=== PATIENT | female | born 1940 | race African-American/Black ===

== ENCOUNTER → 2017-01-06 | Outpatient (CLI) | payer OTHER ==
[~2017-01-06] MED LIST: ACETAMINOPHEN PR; ARIMIDEX1 MG; ARIMIDEX1 MG PO; ASPIRIN; ASPIRIN EC81 M1 PO; ASPIRIN81 M2 PO; ASPIRIN81 MG PO; AUGMENTIN PO; B-121000 MC1 PO; BAYER CHEWABLE81 MG PO; BP MED; BUMEX; CALCIUM STOOL240 M1 PO; CANASA1000 MG/SU; CARDIZEM CD180 M1 PO; CARDIZEM SR PO; CARTIA XT PO; CATAPRES-TTS-10.1 M1 TD; CLONIDINE1 EAC1 TD; COLACE PO; COUMADIN; COUMADIN PO; COUMADIN4 MG PO; CYANOCOBALAM1000 MCG PO; DOC-Q-LACE100 MG PO; DOCUSATE SODIU100 MG PO; DOXYCYCLINE150 MG PO; DSS100 MG PO; FERRO-TIME325 MG PO; FERROUS SULFATE; FLEXERIL10 MG PO; FOLIC ACID1 MG PO; HYDRALAZINE HCL25 MG PO; HYDROCODON-ACE1 EAC7 PO; K-DUR20 ME1 PO; KCL; KCL PO; KLOR-CON; KLOR-CON PO; LEVAQUIN PO; LEVAQUIN750 MG PO; LEVOFLOXACIN500 MG PO; LEVOTHYROXINE88 MCG PO; LEVSIN0.125 M2 PO; LEVSIN0.125 M2 SL; LISINOPRIL PO; LOVENOX40 MG/0.4 INJ; MACRODANTIN50 MG PO; MORGIDOX100 MG PO; MULTI VITAMIN1 EACH PO; MULTI-VITAMIN1 EAC1 PO; NEURONTIN PO; NEURONTIN100 MG PO; NEXIUM; NITROFURANTOIN50 M1 PO; NON-ASPIRIN325 MG PO; NORVASC PO; NORVASC10 MG PO; PANTOPRAZOLE SO40 MG PO; PHENERGAN25 MG PO; SENNA; SERTRALINE HCL25 M1 PO; SERTRALINE HCL25 M2 PO; STOOL SOFTENER100 M1 PO; SYNTHROID; SYNTHROID112 MCG PO; SYNTHROID88 MCG PO; TIROSINT75 MCG PO; TRIMPEX100 MG PO; VITAMIN B12-FO1 EACH PO; VITAMIN D1000 UNI1 PO; VITAMIN D1000 UNI2 PO; VITAMIN D1000 UNIT PO; VITAMIN D10000 UNIT PO; VITAMIN D3 COM1 EACH PO; VITAMIN D35000 UNI1 PO; VITAMIN D35000 UNIT PO; VITAMIN D400 UNI2; XARELTO20 MG PO; ZITHROMAX1 G/PKT PO; ZOFRAN
== END | disposition home or self-care (01) ==
LOC: CSSDAY 15:07
DX: D64.9 Anemia, unspecified (principal)
CPT/HCPCS: 86850; 86900; 86901; 86923

== ENCOUNTER → 2017-01-07 | Outpatient (CLI) | payer OTHER | END | disposition home or self-care (01) | LOC: CSSDAY 06:19 | DX: D64.9 Anemia, unspecified (principal) | CPT/HCPCS: 36430; J1200; J1642; J1940; P9016 ==

== ENCOUNTER 2017-02-28 15:05 | Inpatient (IN) | payer OTHER ==
--- NOTE | ~2017-02-28 | HP ---
Unit #: [id number] #: [id number] Patient: JAKI SPRINGER [id number] [address] [place], [place] [address] [id number] I MR#: [id number] NAME: JAKI SPRINGER ROOM: 03012 Age: 76 Sex: F Admission Date: 02/28/2017 : 1940 Attending Physician: Soo Cruz M.D. Primary Care Physician: Evelyn Henderson M.D. HISTORY AND PHYSICAL CHIEF COMPLAINT Complicated urinary tract infection with acute on chronic kidney injury and early sepsis. HISTORY OF PRESENT ILLNESS This pleasant 76-year-old female with a urostomy following treatment for endometrial CA, history of PE and DVTs, hypothyroidism, hypertension, and previous CVA, is admitted for early sepsis. The patient was in her usual state of health until two days prior to admission when she developed rigors with chills, increasing weakness, and today nausea and vomiting. She notes that her urine has appeared more cloudy. Her temperature this morning was as high as 103.1 degrees. She presented to this emergency department this afternoon where she was bolused with two liters of saline and given one gram of Rocephin after her urine was found to have significant pyuria. She currently is feeling somewhat improved, although her current blood pressure is 94/57. Previous cultures in the past were gram-negative organisms sensitive to Rocephin. PAST MEDICAL HISTORY 1. Recurrent endometrial CA, status post IVETTE in 2000. The patient was found to have metastatic disease and underwent extensive abdominal surgery on July 01, 2015, at [facility]. She has a urostomy in place. Status post XRT and chemotherapy. 2. History of pleural effusions. 3. Pulmonary embolism and DVT in 2005. The patient was anticoagulated until her GI bleeding. Now is status post IVC filter placement. 4. Gastroesophageal reflux disease. 5. Hypothyroidism. 6. Depression. 7. Hypertension. 8. Peripheral neuropathy secondary to chemotherapy. 9. Multiple CVAs. Last CVA in May 2016 was cardioembolic in nature and resulted in right-sided weakness and expressive aphasia. 10. Thyroid cancer, status post thyroidectomy. 11. History of possible rectal cancer, status post chemotherapy and radiation, complicated by radiation proctitis. 12. Total abdominal hysterectomy. 13. Urostomy. 14. Extensive abdominal surgery for metastatic endometrial CA. 15. Inferior vena cava filter placement. 16. Ureteral stent. 17. Thyroidectomy. Unit #: [id number] #: [id number] Patient: JAKI SPRINGER ALLERGIES Penicillin and sulfa. HOME MEDICATIONS 1. Neurontin 100 mg t.i.d. 2. Colace 100 mg b.i.d. 3. Clonidine 1 patch weekly. 4. Hydralazine 25 mg t.i.d. 5. Multivitamin daily. 6. Synthroid 0.088 mg daily. 7. Vitamin D3 at 5000 units daily. 8. Vitamin B12 at 1000 mg daily. 9. Aspirin 81 mg daily. FAMILY HISTORY Hypertension and diabetes mellitus. SOCIAL HISTORY The patient lives with her . She is a lifelong nonsmoker and does not drink alcohol. REVIEW OF SYSTEMS Somewhat difficult to obtain due to expressive aphasia. PHYSICAL EXAMINATION GENERAL: A very pleasant 76-year-old female currently in no acute distress. VITAL SIGNS: Temperature 103.1, pulse 126, respirations 20, blood pressure 141/50, and O2 saturation is 96% on room air. HEENT: Eyes PERRLA. Extraocular muscles are intact. Pharynx is benign. NECK: Supple without adenopathy or thyromegaly. CHEST: Clear. BACK: Without CVA tenderness. CARDIAC: Normal S1 and S2 with a soft systolic murmur. There is a port in the right upper chest. ABDOMEN: Bowel sounds are present. No hepatosplenomegaly, tenderness, or masses. There is a urostomy in the mid abdomen. EXTREMITIES: Without edema. Pedal pulses are present. NEUROLOGIC: Patient is awake and alert. She is oriented. Cranial nerves are intact except for a mild right lower facial droop. She has expressive aphasia. She does have very good strength however bilaterally. DIAGNOSTIC STUDIES ADMISSION LABORATORY: Hematocrit is 30 which is improved and white blood count is 2.1 with normal platelet count and 12 bands noted. SMA-12: BUN 27, creatinine 2, up from a creatinine of 1.4 in September, potassium 3.4, CO2 of 17, AST 152, ALT 45, and alkaline phosphatase 146. Normal lactic acid level. Urinalysis with positive leukocyte esterase and protein with 10-25 red cells and enumerable white cells. IMAGING: Chest x-ray I am told shows no acute disease, and I will review the x-ray. CARDIOLOGY: EKG sinus tachycardia, rate 115. ASSESSMENT 1. Complicated urinary tract infection in this patient with urostomy and early sepsis. Unit #: [id number] #: [id number] Patient: JAKI SPRINGER 2. History of hypertension with decreasing blood pressure. 3. Cerebrovascular accident with expressive aphasia. 4. Acute on chronic kidney disease. 5. History of rectal cancer, status post treatment. 6. Prior deep venous thrombosis and pulmonary embolism, status post inferior vena cava filter placement. 7. Endometrial cancer with metastatic disease requiring chemotherapy, radiation, and extensive surgery. 8. Hypothyroidism, status post thyroidectomy. 9. Chronic anemia. PLANS 1. IV fluids. 2. Cefepime and give one dose of vancomycin as the patient has a Mediport in place. 3. Hold antihypertensive medications. 4. Florastor. 5. Recheck labs in the morning. 6. Further workup and consultants depending on above. 1. Dictated by Kunal Cifuentes/leonel TD: 02/28/2017 21:25 JOB #: [id number] HISTORY AND PHYSICAL Page 1 of 1 X Soo Cruz MD X HISTORY AND PHYSICAL
--- NOTE | ~2017-02-28 | EKG ---
PATIENT: JAKI SPRINGER UNIT #: [id number] Ventricular Rate: 79 BPM Atrial Rate: 79 BPM P-R Interval: 154 ms QRS Duration: 92 ms Q-T Interval: 410 ms QTC Calculation(Bezet): 470 ms P Morrill: 65 degrees Calculated R Morrill: 61 degrees Calculated T Morrill: 38 degrees Diagnosis Line: Sinus rhythm with Premature atrial complexes Diagnosis Line: Otherwise normal ECG Diagnosis Line: When compared with ECG of 28-FEB-2017 15:38, Diagnosis Line: Premature atrial complexes are now Present Diagnosis Line: Non-specific change in ST segment in Anterior Diagnosis Line: leads Diagnosis Line: Confirmed by VANI JONES MD ([id number]) on 03/04/2017 Diagnosis Line: 10:28:09 AM INTERPRETING MD: ROBERT SANCHEZ
--- NOTE | ~2017-02-28 | CO ---
Unit #: [id number] #: [id number] Patient: JAKI SPRINGER [id number] [address] [place], [place] [address] [id number] I MR#: [id number] NAME: JAKI SPRINGER ROOM: 569 Age: 76 Sex: F Admission Date: 02/28/2017 : 1940 Attending Physician: Soo Cruz M.D. Primary Care Physician: Evelyn Henderson M.D. Consultation Date: 03/02/2017 CONSULTATION REPORT CHIEF COMPLAINT Abdominal pain. HISTORY OF PRESENT ILLNESS Ms. Springer is a 76-year-old woman, who we seen in the past with history of ileal conduit due to endometrial cancer. The patient has had repeated admissions for UTI. She normally see Dr. Yun urologist in [facility] in consult, because her recent CT scan showed worsening left hydronephrosis. She is here in the hospital, his is at the bedside. She has had intermittent episodes of abdominal pain. She has had a stroke since the last time I saw her. PAST MEDICAL HISTORY Endometrial cancer, hysterectomy, ileal conduit. She has had exploratory laparotomy before. She had radiation chemotherapy, pleural effusion, pulmonary embolus, GERD, IVC filter placement, hypothyroidism, depression, hypertension, peripheral neuropathy, thyroid cancer, rectal cancer. She has had previous ureteral stents, and a thyroidectomy. ALLERGIES Penicillin and sulfa. MEDICATIONS At home; Colace, Neurontin, clonidine, hydralazine, Synthroid, vitamin D3, vitamin B12, aspirin. FAMILY HISTORY Negative for any urologic problems. SOCIAL HISTORY She denies smoking or drinking. REVIEW OF SYSTEMS Negative for 10 points except for episodes of abdominal discomfort. PHYSICAL EXAMINATION VITAL SIGNS: She is afebrile. Vital signs are stable. GENERAL: Pleasant. HEENT: Pupils are equal and reactive to light. NECK: Supple. CHEST: Benign. PULMONARY: Benign. CARDIAC: Benign. ABDOMEN: Soft. No rebound or guarding. She has ileal conduit. 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 Urine is clear. Stoma is patent. EXTREMITIES: No edema. DIAGNOSTIC STUDIES LABORATORY RESULTS: Creatinine 2.1, which seems to be baseline for her. Recent white count 16.7. Most recent urine culture showing gram-negative rods. ASSESSMENT Hydronephrosis on the left; history of urinary tract infections in the past. The patient with worse hydronephrosis compared to previous CT scan. Discussed at length with the patient and her . They refused percutaneous nephrostomy tube placement. They refused attempted placement of the stent. He states she has an appointment with Dr. Yun and with another "kidney specialist" for hydronephrosis. I informed him that the hydronephrosis is worse since the last CT scan that was performed here. They still do not want any intervention. She does not want another stent placed she has had previous stent placement apparently, but they do not want her to go to a more procedures. At this time, we can offer our services if and when needed. She can be discharged home and she can definitely return to see the urologist as they have planned to do. Thank you for the consult. Dictated by... Eriberto Marie M.D. FIFI/karissa TD: 03/03/2017 02:05 JOB #: [id number] CONSULTATION REPORT Page 1 of 1 X Eriberto Marie MD X CONSULTATION REPORT
--- NOTE | ~2017-02-28 | CR72 ---
[facility] A Service of [facility] RADIOLOGY TEXT RESULTS PATIENT: JAKI SPRINGER LOCATION: [facility] 569-01 : [birth year] UNIT #: [id number] AGE: [address]: Soo Cruz MD SEX: F ORDER DR: [id number] [facility] [address] [facility]. [place], [place] [address] [id number] I MR#: [id number] Acc #: [id number] NAME: JAKI SPRINGER : 1940 SEX: F STUDY DATE/TIME: 02/28/2017 15:35 UNIT: [facility] ROOM: [facility] STUDY DESCRIPTION: CR Chest Single View Portable Attending Physician: Soo Cruz M.D. Ordering Physician: Kirt Ortiz M.D. Primary Care Physician: Evelyn Henderson M.D. MEDICAL IMAGING REPORT This report is preliminary unless electronic signature is present EXAM Portable chest INDICATION Shortness of breath worse the past 2 days. COMPARISON 10/09/2016. FINDINGS Stable volume loss in the right base with right pleural fluid or thickening. No acute infiltrate. Heart size stable. Stable chest port. IMPRESSION No acute finding. Dictated by... Romero Malin M.D. THIS IS AN ELECTRONICALLY VERIFIED REPORT Romero Malin M.D. at 03/01/2017 2:24 PM ARASH/carolina TD: 03/01/2017 06:43 JOB #: [id number] MEDICAL IMAGING REPORT Page 1 of 1 COPY
--- NOTE | ~2017-02-28 | DS ---
Unit #: [id number] #: [id number] Patient: JAKI SPRINGER [id number] [address] [address] [id number] I MR#: [id number] NAME: JAKI SPRINGER ROOM: 569 Age: 76 Sex: F Admission Date: 02/28/2017 : 1940 Discharge Date: Attending Physician: Soo Cruz M.D. Primary Care Physician: Evelyn Henderson M.D. DISCHARGE SUMMARY TRANSFER SUMMARY DATE OF TRANSFER 03/03/17 ADMISSION DIAGNOSES 1. Complicated urinary tract infection in patient with urostomy and early sepsis. 2. History of hypertension with decreasing blood pressure. 3. History of cerebrovascular accident with expressive aphasia. 4. Acute on chronic kidney disease. 5. History of rectal cancer status post treatment. 6. Prior deep venous thrombosis and pulmonary embolism status post inferior vena cava filter placement. 7. Endometrial cancer with metastatic disease requiring chemotherapy, radiation therapy and extensive surgery. 8. Hypothyroidism status post thyroidectomy. 9. Chronic anemia. DISCHARGE DIAGNOSES 1. Sepsis. 2. Gram-negative jacki bacteremia. 3. Acute on chronic kidney disease, 3. 4. Severe left hydronephrosis. 5. Parastomal herniation with stool impaction. 6. Acute thrombocytopenia without bleeding. 7. Hypertension. 8. Chronic anemia. 9. Hypothyroidism. 10. Elevated liver enzymes. 11. Hypokalemia. 12. Hypomagnesemia. 13. History of deep venous thrombosis and pulmonary embolism with inferior vena cava filter. CONSULTANTS 1. Alphonso Stark M.D., Nephrology. 2. Eriberto Marie M.D. Genitourinary Service. PROCEDURES None. DIAGNOSTIC STUDIES LABORATORY: WBC 16.7, hemoglobin 8.0, hematocrit 24.6, platelet count Unit #: [id number] #: [id number] Patient: JAKI SPRINGER 126,00. Sodium 137, potassium 3.2, chloride 110, CO2 17, glucose 60, BUN 31, creatinine 2.1, calcium 7.2, AST 104, ALT 68, alkaline phosphatase 122, bilirubin total 0.5, total protein 4.6, albumin 1.9, magnesium 1.7. PT 12.3, INR 1.2. Urine culture, preliminary, GNR greater than 100,000 CFU/mL. Blood culture x2 (preliminary) GNR. TSH 0.44, free T4 1.04. Lactic acid 0.8, 1.0. Occult blood IFOB positive. Troponin less than 0.05. IMAGING: CT of the abdomen without contrast, 03/01/17. Impression: Bilateral ureteral diversion to a right mid abdominal ileal conduit. Very severe left-sided hydronephrosis which has increased significantly since 09/23/2016. There is only minimal right-sided pyelocaliectasis. Large parastomal hernia of transverse colon which appears impacted with stool in the adjacent abdominal wall. This has increased in overall caliber since 09/23/2016. While there is no bowel dilatation within the abdomen to suggest bowel obstruction, this large hernia may contribute to poor urinary drainage of the patient's ileal conduit. Consider percutaneous or retrograde drainage of the markedly hydronephrotic left kidney, if clinically indicated. Decompression of the parastomal hernia would also likely be helpful. Cholecystectomy. Tiny bilateral pleural effusions and bibasilar pulmonary atelectasis. Portable chest, 02/28/17. Impression: No acute finding. CARDIOVASCULAR: 12-lead EKG on admission: Sinus tachycardia, otherwise, normal ECG. Repeat 12-lead EKG pending at this time. ALLERGIES Penicillin and sulfa. TRANSFER MEDICATIONS 1. Sodium bicarbonate 1,300 mg p.o. b.i.d. 2. Tylenol 650 mg p.o. q.4 hours p.r.n. pain. 3. Neurontin 100 mg p.o. t.i.d. 4. Colace 100 mg p.o. b.i.d. 5. Laxative of choice p.r.n. constipation. 6. MiraLax 17 g p.o. daily. 7. Florastor 250 mg p.o. b.i.d. 8. Therapeutic formula with minerals one tab p.o. daily. 9. Aspirin EC 81 mg p.o. daily. 10. Sodium chloride 0.9% 10 mL syringe flush IV catheter maintenance. 11. Synthroid 0.075 mg p.o. daily in the morning. 12. Vitamin D 5,000 units p.o. daily. 13. Vitamin B12 1,000 mcg p.o. daily. 14. Cefepime one gram IV q.24 hours. 15. One half normal saline with 75 mEq of sodium bicarbonate IV q.8 hours. 16. Please note the patient is to receive mag sulfate 2 g IV times one dose prior to transfer to [facility]. 17. The patient is to receive KCl per potassium protocol for potassium of 3.2 IV prior to transfer to [facility]. HOSPITAL COURSE The patient is a 76-year-old -Iranian female who presented to [facility] on the date of admission with complaint of rigors with chills, increasing weakness, nausea and vomiting. The patient's temperature was noted to be as high as 103.1 degrees earlier in Unit #: [id number] #: [id number] Patient: JAKI SPRINGER the day and was treated in the emergency department with two liters of saline and one gram of Rocephin after urine was found to have significant pyuria. The patient was somewhat improved, although blood pressure at the time of admission was 94/57. She was admitted to the hospital for further evaluation and management of her condition. Please refer to history and physical report for complete details. Results of blood cultures collected in the emergency department returned positive for GNR. Final blood cultures and sensitivities are pending at this time. Sepsis protocol was initiated as the patient was noted to also have an acute kidney on chronic kidney disease which was considered to be potentially related to sepsis. Dr. Alphonso Stark was consulted for further renal evaluation and management. CT of the abdomen was performed and revealed very severe left hydronephrosis as well as a left parastomal hernia which, per CT report, is believed to be contributing to the patient's hydronephrosis. Dr. Marie was consulted from Service who evaluated the patient and spoke with the patient's . The patient wishes to be transferred to [facility] under the care of Dr. Jose Maria Yun with whom I have spoken today and who has agreed to accept her to his care there at [facility]. The patient is also noted to have acute on chronic anemia with hemoglobin stable at 8.0 this morning. The patient's platelet count was also noted to be decreased this morning. The patient is having no obvious bleeding, although one stool for occult blood returned positive. The patient's blood pressure medications were discontinued on admission as her blood pressure was running somewhat low. Her blood pressure has been stable off of these medications. She has also been noted to have tomography technologist hypoglycemia after being kept n.p.o. on two separate occasions. I have spoken with Dr. Yun this morning and the patient will be allowed to eat as plan for any type of drainage of the left kidney will take place tomorrow. The patient is also noted to have moderately elevated liver enzymes which appear to be decreasing slowly this morning. She exhibited mild hypokalemia and hypomagnesemia, both of which will be repleted as dictated above. She has a history of DVT with PE and is status post placement of IVC filter. She has been on SCDs for DVT prophylaxis since admission. The patient has been noted to have a mild irregularity of heart rate on clinical examination and on telemetry strip this morning. A 12-lead EKG is pending at this time. The patient is completely asymptomatic. I have discussed the patient's condition with Dr. Sanchez. The transfer center has been notified. Again, I have spoken with Dr. Yun, who has agreed to accept the patient upon bed availability and bed assignment at [facility]. At this time, the plan is for transfer to [facility] later this afternoon. This has been discussed with the patient and her who are in agreement with the plan. Dictated by... Ruby Franco A.P.R.N. for Kunal Mcmillan/donn TD: 03/02/2017 11:43 JOB #: [id number] Unit #: [id number] #: [id number] Patient: JAKI SPRINGER DISCHARGE SUMMARY Page 1 of 1 X Ruby Franco APRN X DISCHARGE SUMMARY
--- NOTE | ~2017-02-28 | CO ---
Unit #: [id number] #: [id number] Patient: BEENA SPRINGER [id number] [address] [address] [id number] I MR#: [id number] NAME: BEENA SPRINGER ROOM: 569 Age: 76 Sex: F Admission Date: 02/28/2017 : 1940 Attending Physician: Soo Cruz M.D. Primary Care Physician: Evelyn Henderson M.D. Consultation Date: 03/01/2017 CONSULTATION REPORT REASON FOR CONSULTATION Renal insufficiency. Thank you very much for asking me to see this patient in consultation. HISTORY OF PRESENT ILLNESS Ms. Beena Springer is a 76-year-old female, who presented to the hospital yesterday with fevers, chills, weakness, nausea, vomiting, cloudy urine. She has an ileal conduit after obstruction from uterine CA, cystectomy and temperature is over 103 at home. Upon presentation, she had temperature of 101.3. She was noted to have a creatinine of 2.0. Upon presentation, it is up to 2.1 today. Because of this, I was asked to see the patient. The patient has noted over the last year to have creatinine ranging anywhere from 1.2 to 2.0. In September of this year, it was 1.4. The patient has aphasia from multiple CVAs in the past. Although, she is able to understand and answer questions. Her is at bedside. She denies any severe headaches, dizziness, cough. No neck pain. No chest pain or chest heaviness. No severe shortness of breath. No significant swelling. The rest of her review of systems as mentioned in the HPI. MEDICATIONS Currently include Neurontin 100 mg a day, Maxipime, Synthroid, Zofran, normal saline, Florastor, and aspirin. ALLERGIES Include Keflex, penicillin, and sulfa. FAMILY HISTORY Positive for hypertension and diabetes. SOCIAL HISTORY She is . No smoking. No alcohol. PAST MEDICAL HISTORY History of recurrent/metastatic endometrial CA; history of PE and DVTs in the past; history of hypothyroidism, status post thyroidectomy secondary to thyroid cancer in the past; history of hypertension; again history of CVAs with aphasia; history of gastroesophageal reflux disease, again status post cystectomy with ileal conduit; history of GI bleed in the past. REVIEW OF SYSTEMS As mentioned in the HPI, otherwise negative. Unit #: [id number] #: [id number] Patient: BEENA SPRINGER PHYSICAL EXAMINATION VITAL SIGNS: T-max 101.3, down to 98.3; pulse 91 to 104; blood pressure 94 to 130 over 40s to 60s. She had 1130 in and out 100+. HEENT: Normocephalic and atraumatic. Pupils are equal, round, and reactive to light. Extraocular muscles are intact. Hearing appears to be normal. Mouth is clear. No erythema. No exudate. NECK: Supple. No adenopathy. CARDIAC: She has regular rate without a rub. No S3 or S4. LUNGS: Clear bilaterally. No wheezes, rhonchi, or rales. ABDOMEN: Bowel sounds positive. Some mild diffuse tenderness. No rebound or guarding. She has an ostomy from the ileal conduit noted. EXTREMITIES: She has no significant lower extremity swelling. Her pulses are intact in upper and lower extremities. JOINTS: No joint pain or joint swelling. SKIN: No acute rashes. NEUROLOGIC: Again she is aphasic, but able to move all extremities. DIAGNOSTIC STUDIES LABORATORY RESULTS: Sodium is 137, potassium 3.6, chloride is 113, bicarb is 16, BUN of 29, creatinine 2.1 with glucose 59, calcium 7.5, albumin is 2.7, phosphorus 3.1, magnesium is 1.9. She did have some increased liver function tests. AST of 154, ALT is 45 when she presented here yesterday. Lactic acid is 1.0. Hemoglobin is from 9.8 to 8.4 today, white count went from 2100 to 21,400, platelets 144,000 with 17 bands. Her blood is growing 2/2 gram negative rods. Her urine cultures are pending. Her UA shows specific gravity of 1.008, 2+ protein, 10 to 25 rbc's, too numerous to count WBCs, 3+ bacteria. TSH was 0.44. IMAGING STUDIES: Chest x-ray was negative. ASSESSMENT AND PLAN 1. Acute on chronic kidney disease, stage 3. The patient's baseline creatinine is probably in the low 1s. Her course of BUN and creatinine worse now most likely related to bacteremia from possible urosepsis versus other as well as possible volume depletion. We will continue IV fluids, though we will change it over to half-normal saline with one-half amps of bicarb per liter with half normal saline equivalent to 125 mL an hour. We will follow I's and O's. We will check CMP, mag, phos, CPK in a.m. She is getting a CT scan of her abdomen without contrast and pelvis today. Certainly, agree with this to rule out obstruction. She has a history of hydronephrosis and stents in the past. 2. Gram-negative rods in the blood, on Maxipime. Await results of blood and urine cultures. 3. History of metastatic endometrial cancer. 4. Status post again cystectomy with history of obstruction and ileal conduit. 5. History of multiple cerebrovascular accidents with aphasia. 6. Acidosis. Again, we will start oral bicarb as well as start IV bicarb. Certainly, her acidosis is combination of renal failure as well as possible bicarb loss from her ileal conduit. Dictated by.Val Stark M.D. DULCE/karissa TD: 03/02/2017 06:24 Unit #: [id number] #: [id number] Patient: BEENA SPRINGER JOB #: [id number] CONSULTATION REPORT Page 1 of 1 X Mendez Stark MD X CONSULTATION REPORT
--- NOTE | ~2017-02-28 | CT7 ---
[facility] A Service of [facility] & [facility] RADIOLOGY TEXT RESULTS PATIENT: JAKI SPRINGER LOCATION: [facility] 569-01 : 41 UNIT #: [id number] AGE: [address]: Soo Cruz MD SEX: F ORDER DR: [id number] [facility] [address] [facility]. [place], [place] [address] [id number] MR#: [id number] Acc #: [id number] NAME: JAKI SPRINGER : 1940 SEX: F STUDY DATE/TIME: 03/01/2017 16:53 UNIT: [facility] ROOM: [facility] STUDY DESCRIPTION: CT Abdomen Wo Cont Attending Physician: Soo Cruz M.D. Ordering Physician: Ruby Franco A.P.R.N. Primary Care Physician: Evelyn Henderson M.D. MEDICAL IMAGING REPORT This report is preliminary unless electronic signature is present EXAM CT abdomen, noncontrast, 03/01/2017. HISTORY 76-year-old female hospital inpatient with severe sepsis. She has a past history of cystectomy and urinary diversion to a urostomy. Urinary tract infection. Abdominal tenderness in the region of the ostomy. TECHNIQUE CT examination of the abdomen was performed without oral or IV contrast, as ordered. This CT exam was performed with one or more of the following radiation dose reduction techniques: automatic exposure control, adjustment of mA and/or kV according to patient size, and iterative reconstruction. COMPARISON CT abdomen/pelvis, 09/23/2016 FINDINGS Bilateral ureteral diversion to a right mid abdominal ileal conduit. 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 Although there is no intraabdominal dilatation of small bowel or colon to suggest bowel obstruction, the presence of the parastomal hernia may contribute to poor urinary outflow. In particular, there is severe left side hydronephrosis that has increased significantly since 09/23/2016. Only minimal pyelocaliectasis is present on the right. Given the history of severe sepsis and urinary tract infection, percutaneous or retrograde drainage of the left kidney may be considered. Cholecystectomy. No bile duct dilatation. Liver, pancreas and spleen are unremarkable. Small bowel and colon are normal in caliber within the STS. [facility] A Service of [facility] & [facility] RADIOLOGY TEXT RESULTS PATIENT: JAKI SPRINGER LOCATION: [facility] 569-01 : 41 UNIT #: [id number] AGE: [address]: Soo Cruz MD SEX: F ORDER DR: abdomen. The stomach is nondistended. Vascular filter in the IVC. Tiny bilateral pleural effusions and dependent posterior lung base atelectasis. Attempts are currently underway to contact the ordering service with the above findings at 1747 hours on 03/01/2017. IMPRESSION 1. Bilateral ureteral diversion to a right mid abdominal ileal conduit. Very severe left side hydronephrosis is noted, increasing significantly since 09/23/2016. There is only minimal right side pyelocaliectasis. 2. Large parastomal herniation of transverse colon, which appears impacted with stool in the adjacent abdominal wall. This has increased in overall caliber since 09/23/2016. While there is no bowel dilatation within the abdomen to suggest bowel obstruction, this large hernia may contribute to poor urinary drainage of the patient's ileal conduit. Consider percutaneous or retrograde drainage of the markedly hydronephrotic left kidney, if clinically indicated. Decompression of the parastomal hernia would also likely be helpful. 3. Cholecystectomy. 4. Tiny Bilateral pleural effusions and bibasilar pulmonary atelectasis. STAT * RESULT Dictated by... Aiden Winn M.D. THIS IS AN ELECTRONICALLY VERIFIED REPORT Aiden Winn M.D. at 03/01/2017 8:51 PM Rivas TD: 03/01/2017 17:53 JOB #: [id number] MEDICAL IMAGING REPORT Page 1 of 1 COPY
--- NOTE | ~2017-02-28 | EKG ---
PATIENT: JAKI SPRINGER UNIT #: [id number] Ventricular Rate: 115 BPM Atrial Rate: 115 BPM P-R Interval: 112 ms QRS Duration: 76 ms Q-T Interval: 318 ms QTC Calculation(Bezet): 439 ms P [place]: -15 degrees Calculated R [place]: 12 degrees Calculated T [place]: 28 degrees Diagnosis Line: Sinus tachycardia Diagnosis Line: Otherwise normal ECG Diagnosis Line: When compared with ECG of 09-OCT-2016 10:11, Diagnosis Line: Vent. rate has increased BY 47 BPM Diagnosis Line: Confirmed by LUZ MARINA MARTÍNEZ MD ([id number]) on Diagnosis Line: 03/01/2017 8:37:26 AM INTERPRETING MD: TANYA SANCHEZ
[~2017-02-28 15:05] MED LIST changes: -ASPIRIN81 MG PO; -BAYER CHEWABLE81 MG PO; -DSS100 MG PO; -FERRO-TIME325 MG PO; -TIROSINT75 MCG PO; -VITAMIN D1000 UNI2 PO; -VITAMIN D3 COM1 EACH PO
[2017-02-28 15:54] LABS: POC - CKMB <1.0 ng/mL (0.0-7.9); POC - TROPONIN <0.05 ng/mL (<=0.05)
[2017-02-28 15:56] LABS: BASOPHIL% 0.8 % (0-2.5); EOSINOPHIL% 0.3 % (0.0-7.0); HEMOGLOBIN 9.8 gm/dL (12.0-16.0); LYMPHOCYTE# 0.1 X10e3 (1.0-3.5); LYMPHOCYTE% 2.5 % (17.0-45.0); MEAN CELL VOLUME 88.1 FL (83-96); MEAN CORPUSCULAR HEMOGLOBIN 28.8 PG (28-34); MEAN CORPUSCULAR HGB CONC 32.6 g/dL (30-36); MEAN PLATELET VOLUME 7.9 FL (6.5-11.5); MONOCYTE# 0.1 X10e3 (0-1.0); MONOCYTE% 2.9 % (3.0-12.0); NEUTROPHIL# 1.9 X10e3 (1.5-7.1); NEUTROPHIL% 93.5 % (40-75); PLATELET COUNT 168 X10e3 (140-420); RED CELL DISTRIBUTION WIDTH 26.1 % (11.0-15.5); WHITE BLOOD COUNT 2.1 X10e3 (4.0-10.5)
[2017-02-28 16:07] LABS: DIFF IND YES
[2017-02-28 16:09] LABS: ALBUMIN SERUM 2.7 g/dL (3.5-5.0); BILIRUBIN, DIRECT 0.3 mg/dL (0.0-0.2); BILIRUBIN,INDIRECT 0.5 mg/dL (0.0-0.9); BILIRUBIN,TOTAL 0.8 mg/dL (0.2-2.0); BUN/CREATININE RATIO 13.5; CALCIUM SERUM 8.6 mg/dL (8.4-10.2); GLOM FILT RATE Estimated 27.6 mL/min (>60); POTASSIUM 3.4 mmol/L (3.5-5.1); PROTEIN TOTAL SERUM 6.3 g/dL (6.0-8.3)
[2017-02-28 16:22] LABS: NUCLEATED RED BLOOD CELL 1 /100 (0)
[2017-02-28 16:23] LABS: PLATELET ESTIMATE NORMAL (NORMAL); TARGET CELLS SL
[2017-02-28] MEDS ORDERED: ASPIRIN81 M2 PO (16:52)
[2017-02-28 18:01] LABS: URINE SOURCE CLEAN CATCH
[2017-02-28 18:21] LABS: URINE APPEARANCE TURBID; URINE BILIRUBIN NEG (NEG); URINE BLOOD 2+ (NEG); URINE COLOR YELLOW; URINE GLUCOSE NEG (NEG); URINE KETONE NEG (NEG); URINE LEUKOCYTE ESTERASE 3+ (NEG); URINE NITRATE NEG (NEG); URINE PH 7.5 (5-8); URINE PROTEIN 2+ (NEG); URINE SPECIFIC GRAVITY 1.008 (1.003-1.035); URINE UROBILINOGEN 0.2 MG/DL (NEG)
[2017-02-28 18:24] LABS: CULTURE INDICATED? YES; URINE BACTERIA AUWI 3+ (NEGATIVE); URINE SQUAMOUS EPITHELIAL CELL MANY /[HPF]; UWBCS1 AUWI INNUM (0-5)
[2017-02-28 18:32] LABS: U HYALINE CASTS AUWI 0-2 /[LPF]
[2017-03-01 08:13] LABS: BASOPHIL# 0.1 X10e3 (0-0.3); BASOPHIL% 0.3 % (0-2.5); EOSINOPHIL% 0.1 % (0.0-7.0); HEMATOCRIT 26.4 % (35.0-45.0); HEMOGLOBIN 8.4 gm/dL (12.0-16.0); LYMPHOCYTE# 0.3 X10e3 (1.0-3.5); LYMPHOCYTE% 1.2 % (17.0-45.0); MEAN CELL VOLUME 88.9 FL (83-96); MEAN CORPUSCULAR HEMOGLOBIN 28.3 PG (28-34); MEAN CORPUSCULAR HGB CONC 31.8 g/dL (30-36); MEAN PLATELET VOLUME 7.8 FL (6.5-11.5); MONOCYTE# 0.9 X10e3 (0-1.0); MONOCYTE% 4.1 % (3.0-12.0); NEUTROPHIL# 20.2 X10e3 (1.5-7.1); NEUTROPHIL% 94.3 % (40-75); PLATELET COUNT 144 X10e3 (140-420); RED BLOOD COUNT 2.97 X10e (3.90-5.30); RED CELL DISTRIBUTION WIDTH 26.6 % (11.0-15.5)
[2017-03-01 08:21] LABS: DIFF IND YES; WHITE BLOOD COUNT 21.4 X10e3 (4.0-10.5)
[2017-03-01 08:31] LABS: BUN/CREATININE RATIO 13.8; CALCIUM SERUM 7.5 mg/dL (8.4-10.2); CREATININE SERUM 2.1 mg/dL (0.6-1.4); POTASSIUM 3.6 mmol/L (3.5-5.1)
[2017-03-01 09:23] LABS: ANISOCYTOSIS MOD
[2017-03-01 09:24] LABS: POIKILOCYTOSIS SL; TARGET CELLS SL
[2017-03-01 09:25] LABS: PLATELET ESTIMATE NORMAL (NORMAL); RBC NORMAL YES
[2017-03-01 13:53] LABS: HEMATOCRIT 25.4 % (35.0-45.0); HEMOGLOBIN 8.1 gm/dL (12.0-16.0); MEAN CELL VOLUME 90.3 FL (83-96); MEAN CORPUSCULAR HEMOGLOBIN 28.9 PG (28-34); MEAN PLATELET VOLUME 7.7 FL (6.5-11.5); RED BLOOD COUNT 2.81 X10e (3.90-5.30); WHITE BLOOD COUNT 22.8 X10e3 (4.0-10.5)
[2017-03-01 14:21] LABS: INR 1.2; MAGNESIUM 1.9 mg/dL (1.6-3.0); PHOSPHOROUS 3.1 mg/dL (2.5-4.6)
[2017-03-01 14:34] LABS: THYROID STIMULATING HORMONE 0.44 uIU/ml (0.34-5.60)
[2017-03-01 14:41] LABS: FREE THYROXIN (T4) 1.04 ng/dL (0.58-1.64)
[2017-03-02 07:02] LABS: HEMATOCRIT 24.6 % (35.0-45.0); MEAN CELL VOLUME 88.7 FL (83-96); MEAN CORPUSCULAR HEMOGLOBIN 28.8 PG (28-34); MEAN CORPUSCULAR HGB CONC 32.5 g/dL (30-36); MEAN PLATELET VOLUME 8.3 FL (6.5-11.5); RED BLOOD COUNT 2.78 X10e (3.90-5.30); RED CELL DISTRIBUTION WIDTH 26.3 % (11.0-15.5); WHITE BLOOD COUNT 16.7 X10e3 (4.0-10.5)
[2017-03-02 07:17] LABS: INR 1.2; PROTHROMBIN TIME (PATIENT) 12.3 SECONDS (9.6-11.5)
[2017-03-02 07:30] LABS: ALBUMIN SERUM 1.9 g/dL (3.5-5.0); BILIRUBIN,TOTAL 0.5 mg/dL (0.2-2.0); BUN/CREATININE RATIO 14.76; CALCIUM SERUM 7.2 mg/dL (8.4-10.2); CREATININE SERUM 2.1 mg/dL (0.6-1.4); MAGNESIUM 1.7 mg/dL (1.6-3.0); PHOSPHOROUS 2.8 mg/dL (2.5-4.6); POTASSIUM 3.2 mmol/L (3.5-5.1); PROTEIN TOTAL SERUM 4.6 g/dL (6.0-8.3)
== END 2017-03-02 20:30 | disposition hospice, home (50) | DRG 872 ==
LOC: CED 15:05 → C5C 21:06 → CEDOF 21:06 → C5C 23:35
PROVIDERS: Emergency Medicine; Internal Medicine; Nurse Practitioner
DX: A41.9 Sepsis, unspecified organism (principal); N17.9 Acute kidney failure, unspecified; E87.2 Acidosis; I69.951 Hemiplegia and hemiparesis following unspecified cerebrovascular disease affecting right dominant side; N13.30 Unspecified hydronephrosis; D69.6 Thrombocytopenia, unspecified; N18.3 Chronic kidney disease, stage 3 (moderate); N39.0 Urinary tract infection, site not specified; I12.9 Hypertensive chronic kidney disease with stage 1 through stage 4 chronic kidney disease, or unspecified chronic kidney disease; Z86.711 Personal history of pulmonary embolism; Z86.718 Personal history of other venous thrombosis and embolism; K21.9 Gastro-esophageal reflux disease without esophagitis; E03.9 Hypothyroidism, unspecified; F32.9 Major depressive disorder, single episode, unspecified; Z90.710 Acquired absence of both cervix and uterus; Z85.850 Personal history of malignant neoplasm of thyroid; Z88.0 Allergy status to penicillin; Z88.2 Allergy status to sulfonamides; Z79.82 Long term (current) use of aspirin; I69.920 Aphasia following unspecified cerebrovascular disease; D64.89 Other specified anemias; E87.6 Hypokalemia
CPT/HCPCS: 71010; 74150; 80048; 80053; 80076; 81003; 82274; 82550; 82553; 82947; 83605; 83735; 84100; 84439; 84443; 84484; 85025; 85027; 85610; 87040; 87077; 87086; 87088; 87186; 93005; 96361; 96365; 99285; J0692; J0696; J3370; J3475

== ENCOUNTER 2017-05-07 16:16 | Observation (INO) | payer OTHER ==
[~2017-05-07] VITALS: Ht 162.6 cm; Wt 56.0 kg
--- NOTE | ~2017-05-07 | EKG ---
PATIENT: JAKI SPRINGER UNIT #: [id number] Ventricular Rate: 77 BPM Atrial Rate: 77 BPM P-R Interval: 168 ms QRS Duration: 84 ms Q-T Interval: 416 ms QTC Calculation(Bezet): 470 ms P [place]: 51 degrees Calculated R [place]: 22 degrees Calculated T [place]: 11 degrees Diagnosis Line: Normal sinus rhythm with sinus arrhythmia Diagnosis Line: Normal ECG Diagnosis Line: When compared with ECG of 02-MAR-2017 11:12, Diagnosis Line: Premature atrial complexes are no longer Present Diagnosis Line: Confirmed by LUZ MARINA MARTÍNEZ MD ([id number]) on Diagnosis Line: 05/09/2017 11:14:29 PM INTERPRETING MD: TANYA SANCHEZ
--- NOTE | ~2017-05-07 | DS ---
Unit #: [id number] #: [id number] Patient: JAKI SPRINGER [id number] [facility]. [place] [id number] [facility]. [place], [place] [address] [id number] I MR#: [id number] NAME: JAKI SPRINGER ROOM: 323 Age: 76 Sex: F Admission Date: 05/07/2017 : 1940 Discharge Date: 05/08/2017 Attending Physician: Darya Moore M.D. Primary Care Physician: Evelyn Henderson M.D. DISCHARGE SUMMARY SHORT STAY SUMMARY HOSPITAL COURSE This 76-year-old female was admitted to the hospital with anemia. Details are as per admission H and P. 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 Her hemoglobin on admission was 6.8. She received one unit of blood transfusion, and hemoglobin is 7.7. The patient is feeling much better and is anxious to go home. I discussed with her , who states that the patient follows up with [facility] and has history of recurrent GI bleeding. They do not want any GI workup or any scopes, as the patient has had it in the past and wants to follow up with her regular doctors at [facility]. They also want to go home today, as the patient has anniversary of her bahai tomorrow. The patient is back to her normal self, as per . Therefore, we will discharge her home. DISCHARGE CONDITION Condition is stable. DISCHARGE MEDICATIONS Patient was advised to continue home medications, which are as per medication reconciliation form and admission H and P. The patient was advised to take iron sulfate 325 mg p.o. daily over the counter. The patient stated that she is not taking aspirin at home even though it is mentioned in her medication reconciliation form. I advised the patient and her to discuss with her primary care physician when they see her in 3-4 days. FOLLOWUP/RECOMMENDATIONS 1. She is advised to follow up with primary care physician in 4-5 days and have a CBC and BMP done. 2. The were advised to call primary care physician or go to ER if her condition changes. NOTE: The plan was discussed in detail with the patient and her , and they showed complete understanding. Dictated by... Richard Ludwig M.D. Unit #: [id number] #: [id number] Patient: JAKI SPRINGER TD: 05/08/2017 11:38 JOB #: [id number] DISCHARGE SUMMARY Page 1 of 1 X Richard Ludwig MD DISCHARGE SUMMARY
--- NOTE | ~2017-05-07 | HP ---
Unit #: [id number] #: [id number] Patient: JAKI SPRINGER [id number] [place], [place] [address] [id number] I MR#: [id number] NAME: JAKI SPRINGER ROOM: 323 Age: 76 Sex: F Admission Date: 05/07/2017 : 1940 Attending Physician: Darya Moore M.D. Primary Care Physician: Evelyn Henderson M.D. HISTORY AND PHYSICAL CHIEF COMPLAINT Weakness. HISTORY OF PRESENT ILLNESS The patient is a 76-year-old female with past medical history of multiple medical problems including severe proctitis with recurrent GI bleed, chronic kidney disease, cerebrovascular accident, pulmonary embolism, deep venous thrombosis, thyroid cancer, rectal cancer, endometrial cancer, GERD, depression, hypertension, hydronephrosis, who presented to the emergency department for evaluation of the above. The patient is aphasic at baseline from stroke in the past. She is able to answer yes and no to questions. Her also assists with providing history. The patient has had a three to four day history of increasing generalized weakness. She has had approximately two days of bright red blood per rectum. The patient states that she has had two loose bloody stools within the past 24 hours. She denies any chest pain, no shortness of breath, no abdominal pain, no fever, no cough or cold symptoms. In the emergency department pulse and blood pressure were 85 and 166/75 respectively. Hemoglobin is 6.8. She is being admitted to [facility] for evaluation and further treatment. PAST MEDICAL HISTORY 1. Admission to [facility] in March of 2017. She underwent nephrectomy as well as parastomal hernia repair during that admission. Family states that she also had a seizure while at the hospital. She is not currently on any antiepileptic medication. She is supposed to see Dr. Camara on May 25 (no records). 2. Cerebrovascular accident. 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 She has residual aphasia. She is able to follow commands and answer yes/no to some questions. 3. Thyroid cancer, status post thyroidectomy, followed by Dr. Wilkinson. 4. History of rectal cancer, status post chemotherapy and radiation, followed by Dr. Hutson at the [facility], complicated by radiation proctitis. 5. Endometrial cancer initially diagnosed in 2000, status post total abdominal hysterectomy. She had a recurrence in 2004 and underwent extensive abdominal surgery as well as chemotherapy. At some point she had a cystectomy with ileal conduit. 6. History of DVT/PE, not on chronic anticoagulation due to recurrent GI bleed. Unit #: [id number] #: [id number] Patient: JAKI SPRINGER 7. GERD. 8. Depression. 9. Hypertension. 10. History of seizure during hospital stay at [facility] in March of 2017. Not currently on antiepileptic medication. The patient is scheduled to follow up with Dr. Camara in May. 11. Hydronephrosis. The patient underwent nephrectomy in March of 2017. She is followed by Dr. Yun. 12. Chronic kidney disease, stage 3 with a baseline creatinine in the low 1s. The patient has seen Dr. Stark in the past. PAST SURGICAL HISTORY 1. Endoscopy. 2. Total abdominal hysterectomy. 3. Cystectomy with ileal conduit. 4. Extensive abdominal surgery for metastatic endometrial carcinoma. 5. Parastomal hernia repair by Dr. Falcon within the past month. 6. IVC filter placement. 7. History of ureteral stent. 8. Thyroidectomy. SOCIAL HISTORY The patient lives with her . There is no tobacco or alcohol use. She walks with a cane. FAMILY HISTORY Family history is notable for hypertension, diabetes. ALLERGIES Penicillin and sulfa. HOME MEDICATIONS 1. Neurontin 100 mg t.i.d. 2. Docusate 100 mg b.i.d. p.r.n. 3. Catapres patch weekly. 4. Hydralazine 25 mg q.8 h. 5. Aspirin 81 mg daily. 6. Levothyroxine 75 mcg daily. 7. Vitamin B12 1000 mcg daily. 8. Vitamin D3 daily. REVIEW OF SYSTEMS A complete review of systems is negative except as indicated in the HPI. DIAGNOSTIC STUDIES CARDIOVASCULAR: EKG shows normal sinus rhythm with sinus arrhythmia and a rate of 77 beats per minute. LABORATORY: Troponin is less than 0.05. INR is 1.1. Complete blood count notable for white blood cell count of 3, hemoglobin and hematocrit 6.8 and 20.6 respectively. Comprehensive metabolic panel notable for BUN and creatinine of 18 and 1.4 respectively, total protein is 5, albumin is 2.5. PHYSICAL EXAMINATION VITAL SIGNS: Temperature is 98.7. Pulse 85. Respirations 16. Blood pressure 166/75. Oxygen saturation 98% on room air. GENERAL: The patient is a very pleasant -[place] female who is Unit #: [id number] #: [id number] Patient: JAKI SPRINGER awake and alert, in no acute distress. HEENT: The head is atraumatic. Mucous membranes are moist. NECK: Neck is supple. Trachea is midline. CARDIOVASCULAR: Regular rate and rhythm. LUNGS: Lungs are clear to auscultation bilaterally with no increased work of breathing. ABDOMEN: Abdomen is soft. She does have an ileostomy bag with yellow urine. Bowel sounds are present in all four quadrants. EXTREMITIES: Nontender, with no pedal edema. NEUROLOGIC: The patient is awake and alert. She is aphasic at baseline. PSYCHIATRIC: Mood and affect are normal. The patient is cooperative. SKIN: Skin of examined areas is warm and dry. ASSESSMENT The patient is a 76-year-old female with: 1. Symptomatic anemia. The patient's hemoglobin was 8 on March 02, 2017. It is 6.8 today. 2. Gastrointestinal bleed likely secondary to severe proctitis. The patient refuses endoscopy. 3. Severe proctitis, following radiation for chemotherapy. 4. Chronic kidney disease, stage 3 with a baseline creatinine of 1.2. Creatinine is 1.4 today. 5. History of cerebrovascular accident with residual aphasia. 6. Thyroid cancer. 7. Rectal cancer. 8. Endometrial cancer. 9. History of deep venous thrombosis/pulmonary embolism. 10. Gastroesophageal reflux disease. 11. Depression. 12. Hypertension. 13. History of hydronephrosis, status post nephrectomy. 14. History of seizure with followup appointment scheduled. PLAN 1. Admit for observation to intermediate level. 2. Healthy heart diet if passes bedside swallow (please note the patient refuses endoscopy). 3. Transfuse one unit packed red blood cells now. 4. Hemoglobin and hematocrit one hour after transfusion and q.6 h. 5. Protonix 40 mg p.o. daily. 6. Serial cardiac enzymes. 7. SCDs. 8. Get records from [facility]. 9. Repeat labs in the morning. Dictated by Darya Moore M.D. JEFF/jamie TD: 05/07/2017 21:35 JOB #: [id number] Unit #: [id number] #: [id number] Patient: JAKI SPRINGER HISTORY AND PHYSICAL Page 1 of 1 X Darya Moore MD HISTORY AND PHYSICAL
[2017-05-07 17:39] LABS: BASOPHIL% 1.1 % (0-2.5); EOSINOPHIL# 0.1 X10e3 (0-0.7); EOSINOPHIL% 2.4 % (0.0-7.0); HEMATOCRIT 20.6 % (35.0-45.0); LYMPHOCYTE# 1.4 X10e3 (1.0-3.5); LYMPHOCYTE% 47.3 % (17.0-45.0); MEAN CELL VOLUME 89.4 FL (83-96); MEAN CORPUSCULAR HEMOGLOBIN 29.4 PG (28-34); MEAN CORPUSCULAR HGB CONC 32.8 g/dL (30-36); MEAN PLATELET VOLUME 8.4 FL (6.5-11.5); MONOCYTE# 0.3 X10e3 (0-1.0); MONOCYTE% 9.3 % (3.0-12.0); NEUTROPHIL# 1.2 X10e3 (1.5-7.1); NEUTROPHIL% 39.9 % (40-75); PLATELET COUNT 148 X10e3 (140-420); RED BLOOD COUNT 2.31 X10e (3.90-5.30); RED CELL DISTRIBUTION WIDTH 23.1 % (11.0-15.5)
[2017-05-07 17:42] LABS: DIFF IND YES; HEMOGLOBIN 6.8 gm/dL (12.0-16.0)
[2017-05-07 17:46] LABS: POC - CKMB <1.0 ng/mL (0.0-7.9); POC - TROPONIN <0.05 ng/mL (<=0.05)
[2017-05-07 17:51] LABS: INR 1.1; PARTIAL THROMBOPLASTIN TIME 29.1 SECONDS (23.5-31.3); PROTHROMBIN TIME (PATIENT) 11.6 SECONDS (10.0-11.7)
[2017-05-07] MEDS ORDERED: NEURONTIN100 MG PO (18:08)
[2017-05-07] MEDS ORDERED: DSS100 MG PO (18:09)
[2017-05-07] MEDS ORDERED: CATAPRES-TTS-10.1 M1 TD (18:11)
[2017-05-07] MEDS ORDERED: HYDRALAZINE HCL25 MG PO (18:12)
[2017-05-07] MEDS ORDERED: BAYER CHEWABLE81 MG PO (18:12)
[2017-05-07 18:13] LABS: ACANTHOCYTES PRESENT; BURR CELLS PRESENT; PLATELET ESTIMATE NORMAL (NORMAL)
[2017-05-07] MEDS ORDERED: B-121000 MC1 PO (18:13)
[2017-05-07] MEDS ORDERED: TIROSINT75 MCG PO (18:13)
[2017-05-07 18:14] LABS: TARGET CELLS MOD
[2017-05-07] MEDS ORDERED: VITAMIN D3 COM1 EACH PO (18:14)
[2017-05-07 18:22] LABS: ALBUMIN SERUM 2.5 g/dL (3.5-5.0); BILIRUBIN, DIRECT 0.1 mg/dL (0.0-0.2); BILIRUBIN,INDIRECT 0.7 mg/dL (0.0-0.9); BILIRUBIN,TOTAL 0.8 mg/dL (0.2-2.0); BUN/CREATININE RATIO 12.85; CALCIUM SERUM 8.6 mg/dL (8.4-10.2); CREATININE SERUM 1.4 mg/dL (0.6-1.4); GLOM FILT RATE Estimated 42.5 mL/min (>60); POTASSIUM 3.7 mmol/L (3.5-5.1)
[2017-05-07 23:50] LABS: CK TOTAL 24 IU/L (26-140)
[2017-05-08 06:11] LABS: INR 1.1; PROTHROMBIN TIME (PATIENT) 11.9 SECONDS (10.0-11.7)
[2017-05-08 06:18] LABS: HEMATOCRIT 22.9 % (35.0-45.0); HEMOGLOBIN 7.7 gm/dL (12.0-16.0); MEAN CELL VOLUME 90.6 FL (83-96); MEAN CORPUSCULAR HEMOGLOBIN 30.6 PG (28-34); MEAN CORPUSCULAR HGB CONC 33.7 g/dL (30-36); MEAN PLATELET VOLUME 8.4 FL (6.5-11.5); RED BLOOD COUNT 2.52 X10e (3.90-5.30); RED CELL DISTRIBUTION WIDTH 20.9 % (11.0-15.5); WHITE BLOOD COUNT 2.8 X10e3 (4.0-10.5)
[2017-05-08 07:02] LABS: CK TOTAL 20 IU/L (26-140)
[2017-05-08 07:10] LABS: ALBUMIN SERUM 2.3 g/dL (3.5-5.0); BILIRUBIN,TOTAL 0.6 mg/dL (0.2-2.0); BUN/CREATININE RATIO 12.85; CALCIUM SERUM 8.5 mg/dL (8.4-10.2); CREATININE SERUM 1.4 mg/dL (0.6-1.4); GLOM FILT RATE Estimated 42.5 mL/min (>60); POTASSIUM 3.3 mmol/L (3.5-5.1); PROTEIN TOTAL SERUM 4.9 g/dL (6.0-8.3)
[2017-05-08] MEDS ORDERED: ASPIRIN81 MG PO (10:12)
[2017-05-08] MEDS ORDERED: VITAMIN D1000 UNI2 PO (10:14)
[2017-05-08] MEDS ORDERED: FERRO-TIME325 MG PO (10:15)
== END 2017-05-08 14:41 | disposition home or self-care (01) ==
LOC: CED 16:16 → CEDOF 19:15 → CED 19:46 → CEDOF 19:46 → C3A PCU 20:23 → CEDOF 20:23 → C3A PCU 05-08 14:41
PROVIDERS: Emergency Medicine; Family Medicine
DX: K92.2 Gastrointestinal hemorrhage, unspecified (principal); D64.9 Anemia, unspecified; K62.7 Radiation proctitis; Y84.2 Radiological procedure and radiotherapy as the cause of abnormal reaction of the patient, or of later complication, without mention of misadventure at the time of the procedure; I69.320 Aphasia following cerebral infarction; C73 Malignant neoplasm of thyroid gland; E89.0 Postprocedural hypothyroidism; K21.9 Gastro-esophageal reflux disease without esophagitis; F32.9 Major depressive disorder, single episode, unspecified; I13.10 Hypertensive heart and chronic kidney disease without heart failure, with stage 1 through stage 4 chronic kidney disease, or unspecified chronic kidney disease; N18.3 Chronic kidney disease, stage 3 (moderate); Z85.048 Personal history of other malignant neoplasm of rectum, rectosigmoid junction, and anus; Z85.89 Personal history of malignant neoplasm of other organs and systems; Z86.718 Personal history of other venous thrombosis and embolism; Z86.711 Personal history of pulmonary embolism
CPT/HCPCS: 36415; 36430; 80048; 80053; 80076; 82550; 82553; 83036; 84484; 85025; 85027; 85610; 85730; 86850; 86900; 86901; 86923; 93005; 99284; G0378; J1642; P9016